=== PATIENT | male | born 1945 | race Caucasian/White ===

== ENCOUNTER 2017-09-09 14:11 | Inpatient (IN) | payer MEDICARE, MEDICAID, SELFPAY ==
[2017-09-09] VITALS (8 sets, daily range): BP systolic 161–190; BP diastolic 78–99; PULSE 90–117; RESP 15–26; TEMP 36.9–37.7; O2SAT 94–98; BMI 30.7; BMI 29.0; BMI 30.8
[2017-09-09 14:41] LABS: Bedside Glucose 356 mg/dL (70-110)
--- NOTE | 2017-09-09 14:59 | CT_ITS ---
STUDY: CT BRAIN WITHOUT CONTRAST REASON FOR EXAM: Male, 71 years old. Elevated blood pressure. Off balance. RADIATION DOSAGE (If Supplied By Facility): CTDIvol = ( 44.99 ) mGy, DLP = ( 745.49 ) mGycm TECHNIQUE: Transaxial CT imaging of the brain was performed without administration of intravenous contrast material. Individualized dose optimization techniques were used for this CT. COMPARISON: November 03, 2015 FINDINGS: Normal soft tissue structures. Normal calvarium. There is age consistent enlargement of the ventricles and sulci, most pronounced within the frontal lobes and stable since the prior examination. There are areas of decreased attenuation within the white matter tracts of the supratentorial brain, consistent with microvascular disease changes. Normal basal ganglia and thalami. Normal brainstem. There is moderate cerebellar atrophy. There is no intracranial hemorrhage. There are no findings of an acute ischemic infarction. Normal visualized paranasal sinuses. CT/Brain/Head without Contrast IMPRESSION: Stable examination demonstrating no acute intracranial process. Electronically Signed: Ladonan Mccarthy MD at 16:12 EST Tel , Service support ,
--- NOTE | 2017-09-09 15:00 | EKG12_ITS ---
Test Reason : HYPERGLYCEMIC Blood Pressure : / mmHG Vent. Rate : 092 BPM Atrial Rate : 092 BPM P-R Int : 128 ms QRS Dur : 084 ms QT Int : 356 ms P-R-T Axes : 026 078 024 degrees QTc Int : 440 ms Normal sinus rhythm Normal ECG Confirmed by DENIS GONZALEZ, SHALINI ([id number]), editorial director FRANCO KRISHNAMURTHY ([id number] on 09/12/2017 1:57:13 PM Referred By: BRAIN Confirmed By:SHALINI BARRIOS MD
[2017-09-09 15:22] LABS: Absolute Lymphocyte Count 1.11 X10^3/ul (0.83-4.51); Absolute Neutrophil Count 8.4 X10^3/uL (2.0-7.7); Basophil# 0.07 X10^3/uL; Basophil% 0.6 % (0-1); Eosinophil# 0.03 X10^3/uL; Eosinophils% 0.3 % (0-5); Hematocrit 41.5 % (40-54); Hemoglobin 13.7 g/dl (13.0-16.5); Lymphocyte # 1.11 X10^3/ul (4.0); Lymphocyte % 9.9 % (19-41); Mean Corpuscular Hgb 29.7 pg (27.0-32.0); Mean Platelet Vol. 12.5 fl (6.2-12.0); Monocyte# 1.55 X10^3/uL; Monocyte% 13.9 % (0-10); Neutrophil # 8.37 X10^3/uL (2.7-7.7); Neutrophil % 74.9 % (47-70); Platelet Count 225 K/mm3 (150-450); RBC Distribution Width CV 13.5 % (11.6-14.6); Red Blood Count 4.61 M/mm3 (4.6-6.2); White Blood Count 11.2 K/mm3 (4.4-11.0)
[2017-09-09 15:24] LABS: Differential Indicated SCAN CRITERIA MET; POSITIVE COUNT NO; POSITIVE DIFFERENTIAL YES; POSITIVE MORPHOLOGY NO
[2017-09-09 15:39] LABS: ALB/GLOB Ratio 0.8 RATIO (0.9-2.4); AST(SGOT) 7 U/L (15-37); Alanine Aminotransfer ALT/SGPT 22 U/L (16-61); Albumin, Serum 3.8 g/dL (3.2-5.0); Alkaline Phosphatase 128 U/L (45-117); Anion Gap 7 (5-15); BUN 11 mg/dL (7-18); BUN/Creat Ratio 11.1 RATIO (10-20); Calcium,Total 9.2 mg/dL (8.5-10.1); Chloride 96 mmol/L (98-107); Creatinine, Serum 0.99 mg/dL (0.70-1.30); EST Glomerular Filtration Rate 79 mL/min (>60); Est Glom Filt Rate - Afr Amer 95 mL/min (>60); Estimated Creatinine Clearance 60.86 ml/min; Globulin 4.6 g/dL (2.2-4.2); Glucose 340 mg/dL (74-106); Potassium 4.3 mmol/L (3.5-5.1); Protein, Total 8.4 g/dL (6.4-8.2); Sodium Level 135 mmol/L (136-145)
[2017-09-09 15:49] LABS: Reactive Lymphocyte RARE
[2017-09-09 15:57] LABS: Bacteria 0 SEEN /hpf (None Seen); Mucous, Urine 0 SEEN /hpf (<or=2+); Red Blood Cells-Urine 0 SEEN /hpf (0-5); Squamous Epithelial Cells - UA 0 SEEN /hpf (0-5); White Blood Cells 0 SEEN /hpf (0-5)
[2017-09-09 15:59] LABS: Color, Urine Yellow (Yellow); Glucose, Dipstick 1000 mg/dl (Normal); Ketone-Dipstick Negative (Negative); Leukocyte Esterase-Dipstick Negative /ul (Negative); Nitrite-Dipstick Negative (Negative); Occult Blood-Urine 10 /ul (Negative); Protein-Dipstick Negative (Negative); Specific Gravity, Urine 1.005 (1.002-1.030); Urine Bilirubin Dipstick Negative (Negative); Urine Clarity Clear (Clear); Urine Urobilinogen Normal (Normal); Urine pH 6.5 (5.0 - 8.0)
--- NOTE | 2017-09-09 17:35 | ED.DCSUM_ITS ---
- ER Visit Summary Date of Service: 09/09/17 Chief Complaint: [Dizziness, hypertension, hyperglycemia] History of Present Illness: The patient is a 71 M [presents the emergency department with 2 days of worsening gait instability blood pressure running in the 180s and 190s systolic and blood sugar running in the mid 200s. He lives in a senior care. He has MRDD. He gives very limited history and really has no complaints.] Physical Examination: [] Pressure elevated other vitals within normal limits WN WD NAD PERRL EOMI MMM NECK supple and nontender, no masses RRR no murmur rub or gallop, no peripheral edema, symmetric radial pulses CTAB no respiratory distress ABDOMEN is soft and nontender, normal bowel sounds, no distension, no rebound or guarding SKIN is warm and dry no rashes Alert and Oriented x3, CN II-XII in tact, no motor or sensory deficits, patient is very off balance and is unable to walk without significant help No lymphadenopathy Test Results: [] Emergency Department Course and Treatment: [Post void residual was 750 cc. Richardson was placed and patient had approximately a liter out. He was mildly hyponatremic. CT was unremarkable. EKG was sinus at a rate of 92. He had a leukocytosis at 11.2. Patient wanted to go home however he was unable to walk without assistance and usually goes up and down steps without any issues and lives at a senior care where his bedroom is on the second floor. For these reasons I do think he requires admission. He was given insulin 6 units for a blood sugar of 340] Treatment Plan: [] Disposition: [Admit] Impression: [1. Gait instability 2. Hyperglycemia 3. Uncontrolled hypertension] This note was generated with [employer] dictation software. It may contain incorrect words, spelling, and punctuation that were not noted in review of the chart prior to signing ED Disposition - Plan for ED Patient: Chief Complaint: Hyperglycemia Referrals: Jasiel Orellana MD [Primary Care Provider] -
--- NOTE | 2017-09-09 18:05 | PCM.HP.STD ---
Problem List (1) Elevated blood sugar Status: Acute (2) Weakness Status: Acute (3) Weakness Status: Acute (4) Benign hypertension Status: Chronic History of Present Illness Date of Admission: 09/09/17 Chief Complaint: elevated blood sugar, elevated blood pressure, confusion The patient is a 71 year old M with past medical history of hypertension, diabetes, MRDD and dementia. He is a resident at a senior living. Patient was unable to give much of a history and history was gotten from the lady accompanying him from the senior living. Per the history bridge expert, patient was noted to be more lethargic and weak over the last couple of days. He was also noted to have elevated blood pressure even though they have been giving him his medication he has been taking it. Blood pressure has been noted to be in the 160s and 180s up to 190 systolic. His blood sugar was also noted to be high in the 200s even though he has been taking his diabetes medications. Caregiver notes that patient has not really had a good appetite and has had decreased urine output. He did not have any fever or chills, any cough or chest pain, any shortness of breath, any abdominal pain, any diarrhea vomiting. This morning while trying to get out of his bed and walk downstairs the nurses that he was very weak and was wobbling and nearly fell. Did not decided to bring him to the hospital for further review. On admission in the ED blood sugar was found to be 340. CT of his head done was negative for any acute intracranial pathology. EKG showed a sinus rate of 92 with normal sinus rhythm. He was noted to have leukocytosis with white cell count of 11.2. He has never been admitted to be managed for poorly controlled diabetes and hypertension. [] Past Medical History Past Medical History (Chronic Problems): Chronic Problems Seizure disorder (Chronic) Mental retardation (Chronic) Iron deficiency anemia (Chronic) Dyslipidemia (Chronic) Benign hypertension (Chronic) Allergies ZARIA Inhibitors Allergy (Verified 09/09/17 14:16) Unknown Home Medications: Ambulatory Orders Medication Instructions Recorded Atorvastatin Calcium [Lipitor] 40 mg PO QHS 03/24/14 Calcium Carbonate/Vitamin D3 1 each PO BID 03/24/14 [Calcium 600 + Vit D Tablet] Diltiazem CD [Cardizem CD] 120 mg PO DAILY 03/24/14 Docusate Sodium [Colace] 200 mg PO BID 03/24/14 Metformin HCl [Glucophage] 500 mg PO BIDCM 03/24/14 Phenobarbital 129.6 mg PO BID 03/24/14 Alendronate Sodium [Fosamax] 70 mg PO Q7D@0700 05/08/15 Escitalopram Oxalate [Lexapro] 15 mg PO DAILY 11/03/15 Donepezil HCl 10 mg PO DAILY 09/09/17 Levetiracetam [Keppra] 500 mg PO BID 09/09/17 Losartan Potassium 25 mg PO DAILY 09/09/17 Pioglitazone HCl 15 mg PO DINNER 09/09/17 Surgical History: no surgical history Psychiatric History: Schizophrenia, - - MRDD Lives: - - [facility] Smoking Status: Never smoker Alcohol: None Drugs: None Review of Systems Constitutional: Reports: Malaise, Weakness. Denies: Anorexia, Chills, Fever Eyes: Denies: Blurred vision HEENT: Denies: Head Aches, Sinus Congestion, Sinus Drainage, Sore Throat Cardiovascular: Reports: - - Near syncope. Denies: Chest Pain, Chest Pressure, Chest Tightness, Heaviness, Light Headedness, Orthopnea, Palpitations, Syncope Respiratory: Denies: Cough, Hemoptysis, Pleuritic Pain, Shortness of Breath, Shortness of breath at rest, Sputum production, Wheezing Gastrointestinal: Denies: Abdominal Pain, Constipation, Diarrhea, Nausea, Vomiting Genitourinary: Denies: Dysuria Musculoskeletal: Denies: Joint Pain, Joint Tenderness Skin: Denies: Rash, Wounds Neurological: Reports: Balance problems - Nearly fell today. Denies: Change in Speech, Difficulty swallowing, Focal weakness, Headaches, Seizures Psychiatric: Denies: Anxiety, Depression, Homicidal Ideations, Suicidal Ideations Hematologic/ Lymphatic: Denies: Easy Bruising, Easy Bleeding VTE Information - Inpt Only VTE Present on Admission: No VTE Pharm Prophylaxis ordered?: Yes Patient Problems: Active and Suspected Problems Elevated blood sugar (Acute) Weakness (Acute) Weakness (Acute) - Physical Exam General: Alert, Cooperative, No apparent distress HEENT: Atraumatic, PERRLA, EOMI, Normocephalic Oral: Moist Mucosa Neck: Supple, No JVD, Negative Carotid Bruits Lungs: - - Mildly decreased breath sounds bibasilarly with a few fine crackles Cardiovascular: Regular rate, Regular Rhythm, Normal S1, Normal S2, No murmurs Abdomen: Bowel Sounds Present, Soft, Non Tender, Non-Distended, No Hepato-splenomegaly Extremities: No clubbing, No cyanosis, No edema, Capillary Refill Less than 3 Seconds Skin: No rashes, No breakdown Musculoskeletal: No Tenderness to Palpation of Joints or Extremities, - - Has mild swelling of his right knee which initial warmth. No redness seen. Lymphatic: No Cervical, Supraclavicular, or Inguinal Adenopathy Neurological: Cranial nerves II-XII grossly intact, Deep Tendon Reflexes 2+/4 and Symmetrical, Motor Exam 5/5 strength throughout, Slurred Speech, Muscle tone normal, Sensory exam intact to light touch and pain, - - Gait not assessed. Cerebellar examination impaired as patient not able to follow instructions for alternate hand movements. However I do not think that this is because he has cerebral abnormality, and is likely because he has MRDD and so is not able to follow clear instructions. Follow instructions for heel to magana. Finger to nose testing was good. Psych/Mental Status: Normal Affect - MRDD Vital Signs Temp Pulse Resp BP Pulse Ox 98.9 F 99 15 190/78 H 94 09/09/17 14:13 09/09/17 17:26 09/09/17 17:26 09/09/17 17:26 09/09/17 17:26 Oxygen Delivery Method Room Air Impressions Brain CT 09/09/17 14:59 IMPRESSION: Stable examination demonstrating no acute intracranial process. Electronically Signed: Ladonna Mccarthy MD at 16:12 EST Tel , Service support , 09/09/17 14:59 Brain/Head without Contrast [CT] Stat Laboratory Results 09/09/17 09/09/17 09/09/17 Range/Units 14:21 14:21 14:33 WBC 11.2 H (4.4-11.0) K/mm3 RBC 4.61 (4.6-6.2) M/mm3 Hgb 13.7 (13.0-16.5) g/dl Hct 41.5 (40-54) % MCV 90.0 (80-94) fL MCH 29.7 (27.0-32.0) pg MCHC 33.0 (32-36) g/gl RDW 13.5 (11.6-14.6) % RDW Differential 44.0 H (35.1-43.9) fl Plt Count 225 (150-450) K/mm3 MPV 12.5 H (6.2-12.0) fl Immature Gran % (Auto) 0.400 (0.0-0.9) % Neut % (Auto) 74.9 H (47-70) % Lymph % (Auto) 9.9 L (19-41) % [place] % (Auto) 13.9 H (0-10) % Eos % (Auto) 0.3 (0-5) % Baso % (Auto) 0.6 (0-1) % Absolute Neuts (auto) 8.4 H (2.0-7.7) X10^3/uL Absolute Lymphs (auto) 1.11 (0.83-4.51) X10^3/ul Total Counted Not Reportable Differential Comment Diff Path Review May foll Reactive Lymphocytes RARE Sodium 135 L (136-145) mmol/L Potassium 4.3 (3.5-5.1) mmol/L Chloride 96 L (98-107) mmol/L Carbon Dioxide 32.0 (21.0-32.0) mmol/L Anion Gap 7 (5-15) BUN 11 (7-18) mg/dL Creatinine 0.99 (0.70-1.30) mg/dL Estim Creat Clear Calc 60.86 ml/min Est GFR (MDRD) Af Amer 95 (>60) mL/min Est GFR (MDRD) Non-Af 79 (>60) mL/min BUN/Creatinine Ratio 11.1 (10-20) RATIO Glucose 340 H (74-106) mg/dL Calcium 9.2 (8.5-10.1) mg/dL Total Bilirubin 0.40 (0.20-1.00) mg/dL AST 7 L (15-37) U/L ALT 22 (16-61) U/L Alkaline Phosphatase 128 H (45-117) U/L Troponin I < 0.02 (<0.06) ng/mL Total Protein 8.4 H (6.4-8.2) g/dL Albumin 3.8 (3.2-5.0) g/dL Globulin 4.6 H (2.2-4.2) g/dL Albumin/Globulin Ratio 0.8 L (0.9-2.4) RATIO Urine Color (Yellow) Urine Clarity (Clear) Urine pH (5.0 - 8.0) Ur Specific [place] (1.002-1.030) Urine Protein (Negative) mg/dl Urine Glucose (UA) (Normal) mg/dl Urine Ketones (Negative) mg/dl Urine Occult Blood (Negative) /ul Urine Nitrite (Negative) Urine Bilirubin (Negative) mg/dL Urine Urobilinogen (Normal) mg/dl Ur Leukocyte Esterase (Negative) /ul Urine RBC (0-5) /hpf Urine WBC (0-5) /hpf Ur Squamous Epith Cells (0-5) /hpf Urine Bacteria (None Seen) /hpf Urine Mucus (<or=2+) /hpf POC Glucose 356 H (70-110) mg/dL 09/09/17 Range/Units 15:24 WBC (4.4-11.0) K/mm3 RBC (4.6-6.2) M/mm3 Hgb (13.0-16.5) g/dl Hct (40-54) % MCV (80-94) fL MCH (27.0-32.0) pg MCHC (32-36) g/gl RDW (11.6-14.6) % RDW Differential (35.1-43.9) fl Plt Count (150-450) K/mm3 MPV (6.2-12.0) fl Immature Gran % (Auto) (0.0-0.9) % Neut % (Auto) (47-70) % Lymph % (Auto) (19-41) % [place] % (Auto) (0-10) % Eos % (Auto) (0-5) % Baso % (Auto) (0-1) % Absolute Neuts (auto) (2.0-7.7) X10^3/uL Absolute Lymphs (auto) (0.83-4.51) X10^3/ul Total Counted Differential Comment Diff Path Review Reactive Lymphocytes Sodium (136-145) mmol/L Potassium (3.5-5.1) mmol/L Chloride (98-107) mmol/L Carbon Dioxide (21.0-32.0) mmol/L Anion Gap (5-15) BUN (7-18) mg/dL Creatinine (0.70-1.30) mg/dL Estim Creat Clear Calc ml/min Est GFR (MDRD) Af Amer (>60) mL/min Est GFR (MDRD) Non-Af (>60) mL/min BUN/Creatinine Ratio (10-20) RATIO Glucose (74-106) mg/dL Calcium (8.5-10.1) mg/dL Total Bilirubin (0.20-1.00) mg/dL AST (15-37) U/L ALT (16-61) U/L Alkaline Phosphatase (45-117) U/L Troponin I (<0.06) ng/mL Total Protein (6.4-8.2) g/dL Albumin (3.2-5.0) g/dL Globulin (2.2-4.2) g/dL Albumin/Globulin Ratio (0.9-2.4) RATIO Urine Color Yellow (Yellow) Urine Clarity Clear (Clear) Urine pH 6.5 (5.0 - 8.0) Ur Specific [place] 1.005 (1.002-1.030) Urine Protein Negative (Negative) mg/dl Urine Glucose (UA) 1000 H (Normal) mg/dl Urine Ketones Negative (Negative) mg/dl Urine Occult Blood 10 H (Negative) /ul Urine Nitrite Negative (Negative) Urine Bilirubin Negative (Negative) mg/dL Urine Urobilinogen Normal (Normal) mg/dl Ur Leukocyte Esterase Negative (Negative) /ul Urine RBC 0 SEEN (0-5) /hpf Urine WBC 0 SEEN (0-5) /hpf Ur Squamous Epith Cells 0 SEEN (0-5) /hpf Urine Bacteria 0 SEEN (None Seen) /hpf Urine Mucus 0 SEEN (<or=2+) /hpf POC Glucose (70-110) mg/dL Assessment/Plan Active and Suspected Problems Elevated blood sugar (Acute) Weakness (Acute) Weakness (Acute) 71-year-old male with past history of diabetes, hypertension and MRDD admitted from a senior living with a complaint of weakness and generalized malaise of a couple of days duration with associated near syncope today. He is also had elevated blood pressure and elevated blood sugars falls in the skilled nursing. 1. Near syncope possibly vasovagal due to dehydration patient was weak and lethargic and nearly fell today when he was walking from his room downstairs hasnt had any dizziness, lightheadedness, nausea or vomiting. Vitals in ED showed elevated BP has had decreased intake in the senior living,a nd was noted to have decreased urine output neuro exam didnt show any focal weakness, was unable to follow instructions for dysdiadochokinesia, but finger to nose testing was normal CBC: wbc was 11.2 BMP: Na of 135, otherwise WNL EKG showed sinus rhythm, with no acute ST changes will admit to PCU with telemetry UA showed no evidence of infection will hydrate with IVF 1/2 NS due to elevated BP will get blood cultures o/a of elevated wbc will monitor 2. Poorly controlled hypertension BP has been running in the 180s and 190s in senior living. Caregiver claims compliance with meds BP is 190/78 on admission on cardizem and losartan; will increase losartan to 50mg daily and monitor BP will put on IV hydralazine 10mg q6prn. Will monitor, and adjust BP meds as necessary 3. HYperglycemia in a patient with DM2 blood sugar on admission in the ED was 340 on metformin 500mg daily and pioglitazone 15mg daily in senior living bicarb within normal limits will check A1C and put on ISS; will adjust oral meds based on A1C 4. Osteoporosis has a painful swollen left knee. Will check uric acid level and get xray of left knee on fosamax; will continue 5. History of seizures on keppra and phenobarbital; will check levels in light of malaise will continue if levels within normal limits 6. DVT prophylaxis: Heparin 7. GI prophylaxis: famotidine Code Visit Inpatient E&M: 29188 Init Hosp L3
--- NOTE | 2017-09-09 18:24 | HP.PCM_ITS ---
Problem List (1) Elevated blood sugar Status: Acute (2) Weakness Status: Acute (3) Weakness Status: Acute (4) Benign hypertension Status: Chronic History of Present Illness Date of Admission: 09/09/17 Chief Complaint: elevated blood sugar, elevated blood pressure, confusion The patient is a 71 year old M with past medical history of hypertension, diabetes, MRDD and dementia. [facility] a [facility]. Patient was unable to give much of a history and history was gotten from the lady accompanying him from the [facility]. Per the history pit hand, patient was noted to be more lethargic and weak over the last couple of days. He was also noted to have elevated blood pressure even though they have been giving him his medication he has been taking it. Blood pressure has been noted to be in the 160s and 180s up to 190 systolic. His blood sugar was also noted to be high in the 200s even though he has been taking his diabetes medications. Caregiver notes that patient has not really had a good appetite and has had decreased urine output. He did not have any fever or chills, any cough or chest pain, any shortness of breath, any abdominal pain, any diarrhea vomiting. This morning while trying to get out of his bed and walk downstairs the nurses that he was very weak and was wobbling and nearly fell. Did not decided to bring him to the hospital for further review. On admission in the ED blood sugar was found to be 340. CT of his head done was negative for any acute intracranial pathology. EKG showed a sinus rate of 92 with normal sinus rhythm. He was noted to have leukocytosis with white cell count of 11.2. He has never been admitted to be managed for poorly controlled diabetes and hypertension. [] Past Medical History Past Medical History (Chronic Problems): Chronic Problems Seizure disorder (Chronic) Mental retardation (Chronic) Iron deficiency anemia (Chronic) Dyslipidemia (Chronic) Benign hypertension (Chronic) Allergies ZARIA Inhibitors Allergy (Verified 09/09/17 14:16) Unknown Home Medications: Ambulatory Orders Medication Instructions Recorded Atorvastatin Calcium [Lipitor] 40 mg PO QHS 03/24/14 Calcium Carbonate/Vitamin D3 1 each PO BID 03/24/14 [Calcium 600 + Vit D Tablet] Diltiazem CD [Cardizem CD] 120 mg PO DAILY 03/24/14 Docusate Sodium [Colace] 200 mg PO BID 03/24/14 Metformin HCl [Glucophage] 500 mg PO BIDCM 03/24/14 Phenobarbital 129.6 mg PO BID 03/24/14 Alendronate Sodium [Fosamax] 70 mg PO Q7D@0700 05/08/15 Escitalopram Oxalate [Lexapro] 15 mg PO DAILY 11/03/15 Donepezil HCl 10 mg PO DAILY 09/09/17 Levetiracetam [Keppra] 500 mg PO BID 09/09/17 Losartan Potassium 25 mg PO DAILY 09/09/17 Pioglitazone HCl 15 mg PO DINNER 09/09/17 Surgical History: no surgical history Psychiatric History: Schizophrenia, - - MRDD Lives: - - snf Smoking Status: Never smoker Alcohol: None Drugs: None Review of Systems Constitutional: Reports: Malaise, Weakness. Denies: Anorexia, Chills, Fever Eyes: Denies: Blurred vision HEENT: Denies: Head Aches, Sinus Congestion, Sinus Drainage, Sore Throat Cardiovascular: Reports: - - Near syncope. Denies: Chest Pain, Chest Pressure, Chest Tightness, Heaviness, Light Headedness, Orthopnea, Palpitations, Syncope Respiratory: Denies: Cough, Hemoptysis, Pleuritic Pain, Shortness of Breath, Shortness of breath at rest, Sputum production, Wheezing Gastrointestinal: Denies: Abdominal Pain, Constipation, Diarrhea, Nausea, Vomiting Genitourinary: Denies: Dysuria Musculoskeletal: Denies: Joint Pain, Joint Tenderness Skin: Denies: Rash, Wounds Neurological: Reports: Balance problems - Nearly fell today. Denies: Change in Speech, Difficulty swallowing, Focal weakness, Headaches, Seizures Psychiatric: Denies: Anxiety, Depression, Homicidal Ideations, Suicidal Ideations Hematologic/ Lymphatic: Denies: Easy Bruising, Easy Bleeding VTE Information - Inpt Only VTE Present on Admission: No VTE Pharm Prophylaxis ordered?: Yes Patient Problems: Active and Suspected Problems Elevated blood sugar (Acute) Weakness (Acute) Weakness (Acute) - Physical Exam General: Alert, Cooperative, No apparent distress HEENT: Atraumatic, PERRLA, EOMI, Normocephalic Oral: Moist Mucosa Neck: Supple, No JVD, Negative Carotid Bruits Lungs: - - Mildly decreased breath sounds bibasilarly with a few fine crackles Cardiovascular: Regular rate, Regular Rhythm, Normal S1, Normal S2, No murmurs Abdomen: Bowel Sounds Present, Soft, Non Tender, Non-Distended, No Hepato- splenomegaly Extremities: No clubbing, No cyanosis, No edema, Capillary Refill Less than 3 Seconds Skin: No rashes, No breakdown Musculoskeletal: No Tenderness to Palpation of Joints or Extremities, - - Has mild swelling of his right knee which initial warmth. No redness seen. Lymphatic: No Cervical, Supraclavicular, or Inguinal Adenopathy Neurological: Cranial nerves II-XII grossly intact, Deep Tendon Reflexes 2+/4 and Symmetrical, Motor Exam 5/5 strength throughout, Slurred Speech, Muscle tone normal, Sensory exam intact to light touch and pain, - - Gait not assessed. Cerebellar examination impaired as patient not able to follow instructions for alternate hand movements. However I do not think that this is because he has cerebral abnormality, and is likely because he has MRDD and so is not able to follow clear instructions. Follow instructions for heel to magana. Finger to nose testing was good. Psych/Mental Status: Normal Affect - MRDD Vital Signs Temp Pulse Resp BP Pulse Ox 98.9 F 99 15 190/78 H 94 09/09/17 14:13 09/09/17 17:26 09/09/17 17:26 09/09/17 17:26 09/09/17 17:26 Oxygen Delivery Method Room Air Impressions Brain CT 09/09/17 14:59 IMPRESSION: Stable examination demonstrating no acute intracranial process. Electronically Signed: Ladonna Mccarthy MD at 16:12 EST Tel , Service support , 09/09/17 14:59 Brain/Head without Contrast [CT] Stat Laboratory Results 09/09/17 09/09/17 09/09/17 Range/Units 14:21 14:21 14:33 WBC 11.2 H (4.4-11.0) K/mm3 RBC 4.61 (4.6-6.2) M/mm3 Hgb 13.7 (13.0-16.5) g/dl Hct 41.5 (40-54) % MCV 90.0 (80-94) fL MCH 29.7 (27.0-32.0) pg MCHC 33.0 (32-36) g/gl RDW 13.5 (11.6-14.6) % RDW Differential 44.0 H (35.1-43.9) fl Plt Count 225 (150-450) K/mm3 MPV 12.5 H (6.2-12.0) fl Immature Gran % (Auto) 0.400 (0.0-0.9) % Neut % (Auto) 74.9 H (47-70) % Lymph % (Auto) 9.9 L (19-41) % [place] % (Auto) 13.9 H (0-10) % Eos % (Auto) 0.3 (0-5) % Baso % (Auto) 0.6 (0-1) % Absolute Neuts (auto) 8.4 H (2.0-7.7) X10^3/uL Absolute Lymphs (auto) 1.11 (0.83-4.51) X10^3/ul Total Counted Not Reportable Differential Comment Diff Path Review May foll Reactive Lymphocytes RARE Sodium 135 L (136-145) mmol/L Potassium 4.3 (3.5-5.1) mmol/L Chloride 96 L (98-107) mmol/L Carbon Dioxide 32.0 (21.0-32.0) mmol/L Anion Gap 7 (5-15) BUN 11 (7-18) mg/dL Creatinine 0.99 (0.70-1.30) mg/dL Estim Creat Clear Calc 60.86 ml/min Est GFR (MDRD) Af Amer 95 (>60) mL/min Est GFR (MDRD) Non-Af 79 (>60) mL/min BUN/Creatinine Ratio 11.1 (10-20) RATIO Glucose 340 H (74-106) mg/dL Calcium 9.2 (8.5-10.1) mg/dL Total Bilirubin 0.40 (0.20-1.00) mg/dL AST 7 L (15-37) U/L ALT 22 (16-61) U/L Alkaline Phosphatase 128 H (45-117) U/L Troponin I < 0.02 (<0.06) ng/mL Total Protein 8.4 H (6.4-8.2) g/dL Albumin 3.8 (3.2-5.0) g/dL Globulin 4.6 H (2.2-4.2) g/dL Albumin/Globulin Ratio 0.8 L (0.9-2.4) RATIO Urine Color (Yellow) Urine Clarity (Clear) Urine pH (5.0 - 8.0) Ur Specific [place] (1.002-1.030) Urine Protein (Negative) mg/dl Urine Glucose (UA) (Normal) mg/dl Urine Ketones (Negative) mg/dl Urine Occult Blood (Negative) /ul Urine Nitrite (Negative) Urine Bilirubin (Negative) mg/dL Urine Urobilinogen (Normal) mg/dl Ur Leukocyte Esterase (Negative) /ul Urine RBC (0-5) /hpf Urine WBC (0-5) /hpf Ur Squamous Epith Cells (0-5) /hpf Urine Bacteria (None Seen) /hpf Urine Mucus (<or=2+) /hpf POC Glucose 356 H (70-110) mg/dL 09/09/17 Range/Units 15:24 WBC (4.4-11.0) K/mm3 RBC (4.6-6.2) M/mm3 Hgb (13.0-16.5) g/dl Hct (40-54) % MCV (80-94) fL MCH (27.0-32.0) pg MCHC (32-36) g/gl RDW (11.6-14.6) % RDW Differential (35.1-43.9) fl Plt Count (150-450) K/mm3 MPV (6.2-12.0) fl Immature Gran % (Auto) (0.0-0.9) % Neut % (Auto) (47-70) % Lymph % (Auto) (19-41) % [place] % (Auto) (0-10) % Eos % (Auto) (0-5) % Baso % (Auto) (0-1) % Absolute Neuts (auto) (2.0-7.7) X10^3/uL Absolute Lymphs (auto) (0.83-4.51) X10^3/ul Total Counted Differential Comment Diff Path Review Reactive Lymphocytes Sodium (136-145) mmol/L Potassium (3.5-5.1) mmol/L Chloride (98-107) mmol/L Carbon Dioxide (21.0-32.0) mmol/L Anion Gap (5-15) BUN (7-18) mg/dL Creatinine (0.70-1.30) mg/dL Estim Creat Clear Calc ml/min Est GFR (MDRD) Af Amer (>60) mL/min Est GFR (MDRD) Non-Af (>60) mL/min BUN/Creatinine Ratio (10-20) RATIO Glucose (74-106) mg/dL Calcium (8.5-10.1) mg/dL Total Bilirubin (0.20-1.00) mg/dL AST (15-37) U/L ALT (16-61) U/L Alkaline Phosphatase (45-117) U/L Troponin I (<0.06) ng/mL Total Protein (6.4-8.2) g/dL Albumin (3.2-5.0) g/dL Globulin (2.2-4.2) g/dL Albumin/Globulin Ratio (0.9-2.4) RATIO Urine Color Yellow (Yellow) Urine Clarity Clear (Clear) Urine pH 6.5 (5.0 - 8.0) Ur Specific [place] 1.005 (1.002-1.030) Urine Protein Negative (Negative) mg/dl Urine Glucose (UA) 1000 H (Normal) mg/dl Urine Ketones Negative (Negative) mg/dl Urine Occult Blood 10 H (Negative) /ul Urine Nitrite Negative (Negative) Urine Bilirubin Negative (Negative) mg/dL Urine Urobilinogen Normal (Normal) mg/dl Ur Leukocyte Esterase Negative (Negative) /ul Urine RBC 0 SEEN (0-5) /hpf Urine WBC 0 SEEN (0-5) /hpf Ur Squamous Epith Cells 0 SEEN (0-5) /hpf Urine Bacteria 0 SEEN (None Seen) /hpf Urine Mucus 0 SEEN (<or=2+) /hpf POC Glucose (70-110) mg/dL Assessment/Plan Active and Suspected Problems Elevated blood sugar (Acute) Weakness (Acute) Weakness (Acute) 71-year-old male with past history of diabetes, hypertension and MRDD admitted from a [facility] with a complaint of weakness and generalized malaise of a couple of days duration with associated near syncope today. He is also had elevated blood pressure and elevated blood sugars falls in the [facility]. 1. Near syncope possibly vasovagal due to dehydration * patient was weak and lethargic and nearly fell today when he was walking from his room downstairs * hasnt had any dizziness, lightheadedness, nausea or vomiting. * Vitals in ED showed elevated BP * has had decreased intake in the [facility],a nd was noted to have decreased urine output * neuro exam didnt show any focal weakness, was unable to follow instructions for dysdiadochokinesia, but finger to nose testing was normal * CBC: wbc was 11.2 * BMP: Na of 135, otherwise WNL * EKG showed sinus rhythm, with no acute ST changes * will admit to PCU with telemetry * UA showed no evidence of infection * will hydrate with IVF 1/2 NS due to elevated BP * will get blood cultures o/a of elevated wbc * will monitor * 2. Poorly controlled hypertension * BP has been running in the 180s and 190s in [facility]. Caregiver claims compliance with meds * BP is 190/78 on admission * on cardizem and losartan; will increase losartan to 50mg daily and monitor BP * will put on IV hydralazine 10mg q6prn. Will monitor, and adjust BP meds as necessary * 3. HYperglycemia in a patient with DM2 * blood sugar on admission in the ED was 340 * on metformin 500mg daily and pioglitazone 15mg daily in [facility] * bicarb within normal limits * will check A1C and put on ISS; will adjust oral meds based on A1C * * 4. Osteoporosis * has a painful swollen left knee. Will check uric acid level and get xray of left knee * on fosamax; will continue * 5. History of seizures * on keppra and phenobarbital; will check levels in light of malaise * will continue if levels within normal limits * 6. DVT prophylaxis: Heparin 7. GI prophylaxis: famotidine Code Visit Inpatient E&M: 40874 Init Hosp L3
--- NOTE | 2017-09-09 19:42 | RAD_ITS ---
STUDY: X-RAY - RIGHT KNEE REASON FOR EXAM: Male, 71 years old. Right knee swelling TECHNIQUE: Three view(s) of the knee. COMPARISON: None. FINDINGS: Normal visualized distal femur. Normal visualized proximal tibia and fibula. Normal proximal tibiofibular articulation. There is chondrocalcinosis of both menisci. Spurring along the tibial spine and femoral notch. There is moderate degenerative arthrosis of the medial femorotibial compartment with moderate joint space narrowing. There is moderate degenerative arthrosis of the lateral femorotibial compartment with moderate joint space narrowing. There is mild degenerative arthrosis of the patellofemoral articulation. There is minimal joint effusion. There are atherosclerotic calcifications. RAD/Knee 3 Views IMPRESSION: Moderate tricompartmental degenerative changes. Minimal joint space effusion. There is no acute displaced fracture or dislocation. Electronically Signed: Kamla Santillan MD at 0:23 EST , Service support ,
[2017-09-09 20:55] LABS: Hemoglobin A1c 6.8 % (4.2-6.3)
[2017-09-09 21:04] LABS: Uric Acid 3.3 mg/dL (3.5-7.2)
[2017-09-09] MEDS: 0.45% Normal Saline 1,000 ML 75 ML IV (22:25)
[2017-09-09] MEDS: levETIRAcetam 500 MG Tablet PO (22:30)
[2017-09-09] MEDS: Docusate Sodium 100 MG Capsule 200 MG PO (22:30)
[2017-09-09] MEDS: Atorvastatin Calcium 40 MG Tablet PO (22:31)
[2017-09-09 22:56] LABS: Bedside Glucose 279 mg/dL (70-110)
[2017-09-10] VITALS (12 sets, daily range): BP systolic 145–167; BP diastolic 71–89; PULSE 91–120; RESP 15–23; TEMP 36.6–37.6; O2SAT 92–95
[2017-09-10 06:26] LABS: Absolute Lymphocyte Count 1.16 X10^3/ul (0.83-4.51); Absolute Neutrophil Count 9.9 X10^3/uL (2.0-7.7); Basophil# 0.02 X10^3/uL; Basophil% 0.2 % (0-1); Eosinophil# 0.01 X10^3/uL; Eosinophils% 0.1 % (0-5); Hematocrit 39.4 % (40-54); Hemoglobin 12.9 g/dl (13.0-16.5); Lymphocyte # 1.16 X10^3/ul (4.0); Lymphocyte % 8.9 % (19-41); Mean Corp Hgb Conc 32.7 g/gl (32-36); Mean Corpuscular Hgb 29.3 pg (27.0-32.0); Mean Corpuscular Volume 89.3 fL (80-94); Mean Platelet Vol. 12.1 fl (6.2-12.0); Monocyte# 1.91 X10^3/uL; Monocyte% 14.6 % (0-10); Neutrophil # 9.92 X10^3/uL (2.7-7.7); Platelet Count 238 K/mm3 (150-450); RBC Distribution Width CV 13.3 % (11.6-14.6); RBC Distribution Width SD 43.5 fl (35.1-43.9); Red Blood Count 4.41 M/mm3 (4.6-6.2)
[2017-09-10 06:32] LABS: Differential Indicated SCAN CRITERIA MET; POSITIVE COUNT NO; POSITIVE DIFFERENTIAL YES; POSITIVE MORPHOLOGY NO
[2017-09-10 06:33] LABS: Anion Gap 9 (5-15); BUN 10 mg/dL (7-18); BUN/Creat Ratio 14.3 RATIO (10-20); Calcium,Total 8.7 mg/dL (8.5-10.1); Chloride 98 mmol/L (98-107); EST Glomerular Filtration Rate 118 mL/min (>60); Est Glom Filt Rate - Afr Amer 142 mL/min (>60); Estimated Creatinine Clearance 60.26 ml/min; Glucose 287 mg/dL (74-106); Sodium Level 133 mmol/L (136-145)
[2017-09-10 06:51] LABS: Bedside Glucose 354 mg/dL (70-110)
[2017-09-10 06:56] LABS: Differential Comment SCANNED
[2017-09-10] MEDS: Calcium Carb/Vitamin D 1 TABLET Tablet PO ×2 (09:26→16:40)
[2017-09-10] MEDS: Donepezil HCl 10 MG Tablet PO (09:27)
[2017-09-10] MEDS: Escitalopram Oxalate 10 MG Tablet 15 MG PO (09:27)
[2017-09-10] MEDS: levETIRAcetam 500 MG Tablet PO ×2 (09:27→22:47)
[2017-09-10] MEDS: Docusate Sodium 100 MG Capsule 200 MG PO ×2 (09:27→22:47)
[2017-09-10] MEDS: Losartan Potassium 50 MG Tablet PO (09:37)
[2017-09-10 10:33] LABS: Pathologist Review Reviewed
[2017-09-10 11:56] LABS: Bedside Glucose 275 mg/dL (70-110)
--- NOTE | 2017-09-10 12:31 | CASEMGMT ---
Patient is from a retirement. JAYA called the number of the person listed as a friend on his face sheet. The name was Catie, however when JAYA called the number the message indicated it was Jennifer, the network architect manager of the retirement on [place]. JAYA left a message requesting a return call about one of their residents. Ginny ROSADO
[2017-09-10] MEDS: Pioglitazone Hydrochloride 15 MG Tablet PO (16:40)
[2017-09-10 17:01] LABS: Bedside Glucose 241 mg/dL (70-110)
--- NOTE | 2017-09-10 18:00 | PCM.PN.HOSP ---
Patient Problems: Active and Suspected Problems Elevated blood sugar (Acute) Weakness (Acute) Weakness (Acute) Subjective: CC: Generalized weakness This is a 71-year-old male with past history of diabetes, hypertension and MRDD admitted from a assisted with a complaint of weakness and malaise , he also experienced near syncopal episode. Was noted to have elevated blood pressure and blood glucose. He reports no new symptoms. Vitals/I&O's: Vital Signs Temp Pulse Resp BP Pulse Ox 99.2 F H 109 H 18 145/86 H 95 09/10/17 14:59 09/10/17 14:59 09/10/17 14:59 09/10/17 14:59 09/10/17 14:59 Oxygen Delivery Method Room Air Weight: 81.8 kg Body Mass Index (BMI) 29.0 Intake and Output for Last 24 Hours 09/08/17 09/09/17 09/10/17 23:59 23:59 23:59 Intake Total 565 / 565 1239 / 1239 Output Total 580 / 580 2024 / 2024 Balance -15 / -15 -786 / -786 General: Alert, Oriented x3 HEENT: Atraumatic Oral: Moist Mucosa Neck: Supple, No JVD Lungs: Clear to auscultation, Normal air movement, No rhonchi, No wheeze Cardiovascular: Regular rate, Normal S1, Normal S2 Abdomen: Bowel Sounds Present, Soft, Non Tender, Non-Distended Extremities: No clubbing, Capillary Refill Less than 3 Seconds Neurological: Cranial nerves II-XII grossly intact, Deep Tendon Reflexes 2+/4 and Symmetrical, Motor Exam 5/5 strength throughout Laboratory Results 09/09/17 20:30: Uric Acid 3.3 L 09/09/17 20:30: Hemoglobin A1c 6.8 H 09/09/17 20:30: Phenobarbital 39.0 09/09/17 20:30: Levetiracetam Pending 09/09/17 22:22: POC Glucose 279 H 09/10/17 05:45: WBC 13.0 H, RBC 4.41 L, Hgb 12.9 L, Hct 39.4 L, MCV 89.3, MCH 29.3, MCHC 32.7, RDW 13.3, RDW Differential 43.5, Plt Count 238, MPV 12.1 H, Immature Gran % (Auto) 0.200, Neut % (Auto) 76.0 H, Lymph % (Auto) 8.9 L, [place] % (Auto) 14.6 H, Eos % (Auto) 0.1, Baso % (Auto) 0.2, Absolute Neuts (auto) 9.9 H, Absolute Lymphs (auto) 1.16, Total Counted Not Reportable, Differential Comment SCANNED, Diff Path Review November [facility] 09/10/17 05:45: Sodium 133 L, Potassium 4.0, Chloride 98, Carbon Dioxide 26.0, Anion Gap 9, BUN 10, Creatinine 0.70, Estim Creat Clear Calc 60.26, Est GFR (MDRD) Af Amer 142, Est GFR (MDRD) Non-Af 118, BUN/Creatinine Ratio 14.3, Glucose 287 H, Calcium 8.7 09/10/17 06:43: POC Glucose 354 H 09/10/17 11:44: POC Glucose 275 H 09/10/17 16:36: POC Glucose 241 H Current Medications Alendronate Sodium (Fosamax) 70 mg PO Q7D@0700 [facility] Atorvastatin Calcium (Lipitor) 40 mg PO QHS [facility] Last Admin: 09/09/17 22:31 Dose: 40 mg Calcium/Vitamin D (Os-Ferny 500mg + D) [facility] Last Admin: 09/10/17 16:40 Dose: 1 tablet Dextrose (D50w Syringe) 0 gm IV X1 PRN; Protocol PRN Reason: Hypoglycemia Docusate Sodium (Colace) 200 mg PO BID [facility] Last Admin: 09/10/17 09:27 Dose: 200 mg Donepezil HCl (Aricept) 10 mg PO DAILY [facility] Last Admin: 09/10/17 09:27 Dose: 10 mg Escitalopram Oxalate (Lexapro) 15 mg PO DAILY [facility] Last Admin: 09/10/17 09:27 Dose: 15 mg Glucagon () 1 mg IM .X1 PRN PRN Reason: Hypoglycemia Heparin Sodium (Porcine) (Heparin Na) 5,000 unit SC Q8 [facility] Last Admin: 09/10/17 15:11 Dose: 5,000 u Hydralazine HCl (Apresoline) 10 mg IV Q6H PRN PRN PRN Reason: BLOOD PRESSURE ELEVATION Last Admin: 09/09/17 23:50 Dose: 10 mg Insulin Aspart (Novolog Flexpen (Bkc)) 0 units SC ACHS [facility] PRN Reason: Protocol Last Admin: 09/10/17 16:39 Dose: 3 u Insulin Detemir (Levemir ([facility])) 10 units SC BID [facility] Levetiracetam (Keppra) 500 mg PO BID [facility] Last Admin: 09/10/17 09:27 Dose: 500 mg Losartan Potassium (Cozaar) 50 mg PO DAILY [facility] Last Admin: 09/10/17 09:37 Dose: 50 mg Magnesium Hydroxide (Milk Of Magnesia) 30 ml PO DAILY PRN PRN PRN Reason: Constipation Metformin [facility] ([facility]) [facility] Last Admin: 09/10/17 16:40 Dose: 500 mg Phenobarbital (Phenobarbital) 129.6 mg PO BID [facility] Pioglitazone HCl (Actos) 15 mg PO DINNER [facility] Last Admin: 09/10/17 16:40 Dose: 15 mg Sodium Chloride () 5 - 30 ml IV UD PRN PRN Reason: SALINE FLUSH Assessment/Plan Active and Suspected Problems Elevated blood sugar (Acute) Weakness (Acute) Weakness (Acute) 1. Near syncope ; continue gentle hydration will obtain echocardiogram. 2. hypertension; continue current antihypertensive agents. 3. Diabetes type 2 with hyperglycemia; will continue on current oral agents as well as insulin sliding scale, I have started him on Levemir. 4. Osteoporosis; continue on Fosamax. 5. History of seizures; continue his current AEDS without change. 6. DVT prophylaxis with Heparin Code Visit OBSV E&M: 62208 Subsequent observation care L3
--- NOTE | 2017-09-10 18:04 | PN_ITS ---
Patient Problems: Active and Suspected Problems Elevated blood sugar (Acute) Weakness (Acute) Weakness (Acute) Subjective: CC: Generalized weakness This is a 71-year-old male with past history of diabetes, hypertension and MRDD admitted from a skilled nursing with a complaint of weakness and malaise , he also experienced near syncopal episode. Was noted to have elevated blood pressure and blood glucose. He reports no new symptoms. Vitals/I&O's: Vital Signs Temp Pulse Resp BP Pulse Ox 99.2 F H 109 H 18 145/86 H 95 09/10/17 14:59 09/10/17 14:59 09/10/17 14:59 09/10/17 14:59 09/10/17 14:59 Oxygen Delivery Method Room Air Weight: 81.8 kg Body Mass Index (BMI) 29.0 Intake and Output for Last 24 Hours 09/08/17 09/09/17 09/10/17 23:59 23:59 23:59 Intake Total 565 / 565 1239 / 1239 Output Total 580 / 580 2024 / 2024 Balance -15 / -15 -786 / -786 General: Alert, Oriented x3 HEENT: Atraumatic Oral: Moist Mucosa Neck: Supple, No JVD Lungs: Clear to auscultation, Normal air movement, No rhonchi, No wheeze Cardiovascular: Regular rate, Normal S1, Normal S2 Abdomen: Bowel Sounds Present, Soft, Non Tender, Non-Distended Extremities: No clubbing, Capillary Refill Less than 3 Seconds Neurological: Cranial nerves II-XII grossly intact, Deep Tendon Reflexes 2+/4 and Symmetrical, Motor Exam 5/5 strength throughout Laboratory Results 09/09/17 20:30: Uric Acid 3.3 L 09/09/17 20:30: Hemoglobin A1c 6.8 H 09/09/17 20:30: Phenobarbital 39.0 09/09/17 20:30: Levetiracetam Pending 09/09/17 22:22: POC Glucose 279 H 09/10/17 05:45: WBC 13.0 H, RBC 4.41 L, Hgb 12.9 L, Hct 39.4 L, MCV 89.3, MCH 29.3, MCHC 32.7, RDW 13.3, RDW Differential 43.5, Plt Count 238, MPV 12.1 H, Immature Gran % (Auto) 0.200, Neut % (Auto) 76.0 H, Lymph % (Auto) 8.9 L, [place] % (Auto) 14.6 H, Eos % (Auto) 0.1, Baso % (Auto) 0.2, Absolute Neuts (auto) 9.9 H, Absolute Lymphs (auto) 1.16, Total Counted Not Reportable, Differential Comment SCANNED, Diff Path Review November [facility] 09/10/17 05:45: Sodium 133 L, Potassium 4.0, Chloride 98, Carbon Dioxide 26.0, Anion Gap 9, BUN 10, Creatinine 0.70, Estim Creat Clear Calc 60.26, Est GFR ( MDRD) Af Amer 142, Est GFR (MDRD) Non-Af 118, BUN/Creatinine Ratio 14.3, Glucose 287 H, Calcium 8.7 09/10/17 06:43: POC Glucose 354 H 09/10/17 11:44: POC Glucose 275 H 09/10/17 16:36: POC Glucose 241 H Current Medications Alendronate Sodium (Fosamax) 70 mg PO Q7D@0700 [facility] Atorvastatin Calcium (Lipitor) 40 mg PO QHS [facility] Last Admin: 09/09/17 22:31 Dose: 40 mg Calcium/Vitamin D (Os-Ferny 500mg + D) [facility] Last Admin: 09/10/17 16:40 Dose: 1 tablet Dextrose (D50w Syringe) 0 gm IV X1 PRN; Protocol PRN Reason: Hypoglycemia Docusate Sodium (Colace) 200 mg PO BID [facility] Last Admin: 09/10/17 09:27 Dose: 200 mg Donepezil HCl (Aricept) 10 mg PO DAILY [facility] Last Admin: 09/10/17 09:27 Dose: 10 mg Escitalopram Oxalate (Lexapro) 15 mg PO DAILY [facility] Last Admin: 09/10/17 09:27 Dose: 15 mg Glucagon () 1 mg IM .X1 PRN PRN Reason: Hypoglycemia Heparin Sodium (Porcine) (Heparin Na) 5,000 unit SC Q8 [facility] Last Admin: 09/10/17 15:11 Dose: 5,000 u Hydralazine HCl (Apresoline) 10 mg IV Q6H PRN PRN PRN Reason: BLOOD PRESSURE ELEVATION Last Admin: 09/09/17 23:50 Dose: 10 mg Insulin Aspart (Novolog Flexpen (Bkc)) 0 units SC ACHS [facility] PRN Reason: Protocol Last Admin: 09/10/17 16:39 Dose: 3 u Insulin Detemir (Levemir ([facility])) 10 units SC BID [facility] Levetiracetam (Keppra) 500 mg PO BID [facility] Last Admin: 09/10/17 09:27 Dose: 500 mg Losartan Potassium (Cozaar) 50 mg PO DAILY [facility] Last Admin: 09/10/17 09:37 Dose: 50 mg Magnesium Hydroxide (Milk Of Magnesia) 30 ml PO DAILY PRN PRN PRN Reason: Constipation Metformin [facility] (Glucophage) [facility] Last Admin: 09/10/17 16:40 Dose: 500 mg Phenobarbital (Phenobarbital) 129.6 mg PO BID [facility] Pioglitazone HCl (Actos) 15 mg PO DINNER [facility] Last Admin: 09/10/17 16:40 Dose: 15 mg Sodium Chloride () 5 - 30 ml IV UD PRN PRN Reason: SALINE FLUSH Assessment/Plan Active and Suspected Problems Elevated blood sugar (Acute) Weakness (Acute) Weakness (Acute) 1. Near syncope ; continue gentle hydration will obtain echocardiogram. 2. hypertension; continue current antihypertensive agents. 3. Diabetes type 2 with hyperglycemia; will continue on current oral agents as well as insulin sliding scale, I have started him on Levemir. 4. Osteoporosis; continue on Fosamax. 5. History of seizures; continue his current AEDS without change. 6. DVT prophylaxis with Heparin Code Visit OBSV E&M: 46363 Subsequent observation care L3
[2017-09-10] MEDS: Atorvastatin Calcium 40 MG Tablet PO (22:48)
[2017-09-10] MEDS: Phenobarbital 32.4 MG Tablet 129.6 MG PO (23:03)
[2017-09-11] VITALS (15 sets, daily range): BP systolic 132–190; BP diastolic 52–79; PULSE 80–120; RESP 14–20; TEMP 36.7–37.6; O2SAT 92–96
[2017-09-11] MEDS: 0.9% NaCl Peripheral Flush Adult/Peds IV ×2 (02:48→06:47)
[2017-09-11 03:21] LABS: Bedside Glucose 261 mg/dL (70-110)
--- NOTE | 2017-09-11 06:45 | NURSING ---
spoke with the counseling center to notify them of crisis consult. voicemail left for [facility] rehabilitation case coordinator Sheila Coleman as well.
[2017-09-11] MEDS: Metoprolol Tartrate 5 MG/5 ML Vial IV (06:46)
[2017-09-11 06:56] LABS: Bedside Glucose 264 mg/dL (70-110)
[2017-09-11] MEDS: Escitalopram Oxalate 10 MG Tablet 15 MG PO (08:22)
[2017-09-11] MEDS: levETIRAcetam 500 MG Tablet PO ×2 (08:29→21:56)
[2017-09-11] MEDS: Donepezil HCl 10 MG Tablet PO (08:30)
[2017-09-11] MEDS: Calcium Carb/Vitamin D 1 TABLET Tablet PO ×2 (08:30→16:45)
[2017-09-11] MEDS: Docusate Sodium 100 MG Capsule 200 MG PO ×2 (08:30→21:56)
[2017-09-11] MEDS: Losartan Potassium 50 MG Tablet PO (08:30)
[2017-09-11] MEDS: Phenobarbital 32.4 MG Tablet 129.6 MG PO ×2 (09:31→21:56)
--- NOTE | 2017-09-11 10:47 | CASEMGMT ---
JAYA received a voice mail from Verónica Trevino LPN with [facility] ([phone]). She asked for a return call regarding d/c. JAYA called her and left her a voice mail. Ginny MARCUM MSW
--- NOTE | 2017-09-11 11:18 | CASEMGMT ---
SW called [facility] [employer]. Patient's coordinator of genetic services is Alfonso Thornton ([phone]). He said he is currently working to obtain a guardian for patient. He felt it would be a good idea to have patient go to a fpc short term due to his weakness and his bedroom being on the 2nd floor. He suggested SW talk with patient about going to a SNF. JAYA met with patient, introduced self and role at [facility]. JAYA discussed going to a fpc for rehab with him a couple of ways and he continued to say he will stay here or not now. JAYA is not sure he understood what JAYA was asking. JAYA will talk with [facility] to let them know how he is doing with therapy and if they feel they can manage him. JAYA will see if someone from [facility] or [facility] could assist with talking with patient about SNF if he does need to go somewhere. Ginny MARCUM MSW
[2017-09-11 11:35] LABS: Bedside Glucose 306 mg/dL (70-110)
--- NOTE | 2017-09-11 14:30 | CASEMGMT ---
JAYA received a return call from LEOBARDO Sanches at [facility]. She said that they are working on moving patient to a different fci where he will have everything on the first floor. JAYA read her PT/OT notes and she was not overly concerned. She said they will likely not have a problem taking him back, but they will look at the PT/OT and talk amongst themselves to decide. The fax number to send PT/OT to is [phone]. She will let JAYA know. Ginny MARCUM MSW
[2017-09-11 14:40] LABS: Pathologist Review Reviewed
--- NOTE | 2017-09-11 15:42 | PCM.PN.HOSP ---
Patient Problems: Active and Suspected Problems Elevated blood sugar (Acute) Weakness (Acute) Weakness (Acute) Subjective: CC: Follow-up on elevated blood pressure and hyperglycemia Patient feels much improved today. He reports no chest pain, shortness of breath or syncope. Vitals/I&O's: Vital Signs Temp Pulse Resp BP Pulse Ox 98.6 F 106 H 16 132/52 H 95 09/11/17 14:00 09/11/17 14:00 09/11/17 14:00 09/11/17 14:00 09/11/17 14:00 Oxygen Delivery Method Room Air Weight: 81.8 kg Body Mass Index (BMI) 29.0 Intake and Output for Last 24 Hours 09/09/17 09/10/17 09/11/17 23:59 23:59 23:59 Intake Total 565 / 565 2189 / 2189 750 / 750 Output Total 580 / 580 4475 / 4475 1550 / 1550 Balance -15 / -15 -2286 / -2286 -800 / -800 General: Alert, Oriented x3 Oral: Moist Mucosa Neck: Supple, No JVD Lungs: Clear to auscultation, No wheeze Cardiovascular: Normal S1, Normal S2 Abdomen: Bowel Sounds Present, Soft Extremities: No edema Laboratory Results 09/10/17 05:45: Diff Path Review Reviewed 09/10/17 16:36: POC Glucose 241 H 09/10/17 22:46: POC Glucose 261 H 09/11/17 06:37: POC Glucose 264 H 09/11/17 11:17: POC Glucose 306 H Current Medications Alendronate Sodium (Fosamax) 70 mg PO Q7D@0700 [facility] Atorvastatin Calcium (Lipitor) 40 mg PO QHS [facility] Last Admin: 09/10/17 22:48 Dose: 40 mg Calcium/Vitamin D (Os-Ferny 500mg + D) [facility] Last Admin: 09/11/17 08:30 Dose: 1 tablet Dextrose (D50w Syringe) 0 gm IV X1 PRN; Protocol PRN Reason: Hypoglycemia Docusate Sodium (Colace) 200 mg PO BID [facility] Last Admin: 09/11/17 08:30 Dose: 200 mg Donepezil HCl (Aricept) 10 mg PO DAILY [facility] Last Admin: 09/11/17 08:30 Dose: 10 mg Escitalopram Oxalate (Lexapro) 15 mg PO DAILY [facility] Last Admin: 09/11/17 08:22 Dose: 15 mg Glucagon () 1 mg IM .X1 PRN PRN Reason: Hypoglycemia Heparin Sodium (Porcine) (Heparin Na) 5,000 unit SC Q8 [facility] Last Admin: 09/11/17 13:33 Dose: 5,000 u Hydralazine HCl (Apresoline) 10 mg IV Q6H PRN PRN PRN Reason: BLOOD PRESSURE ELEVATION Last Admin: 09/11/17 02:48 Dose: 10 mg Insulin Aspart (Novolog Flexpen ([facility])) 0 units SC ACHS [facility] PRN Reason: Protocol Last Admin: 09/11/17 11:20 Dose: 4 u Insulin Detemir (Levemir ([facility])) 10 units SC BID [facility] Last Admin: 09/11/17 08:31 Dose: 10 u Levetiracetam (Keppra) 500 mg PO BID [facility] Last Admin: 09/11/17 08:29 Dose: 500 mg Losartan Potassium (Cozaar) 100 mg PO DAILY [facility] Magnesium Hydroxide (Milk Of Magnesia) 30 ml PO DAILY PRN PRN PRN Reason: Constipation Metformin HCl (Glucophage) 500 mg PO BIDCM [facility] Last Admin: 09/11/17 08:30 Dose: 500 mg Metoprolol Tartrate (Lopressor (Beta Brittany)) 50 mg PO BID [facility] Phenobarbital (Phenobarbital) 129.6 mg PO BID [facility] Last Admin: 09/11/17 09:31 Dose: 129.6 mg Pioglitazone HCl (Actos) 15 mg PO DINNER [facility] Last Admin: 09/10/17 16:40 Dose: 15 mg Sodium Chloride () 5 - 30 ml IV UD PRN PRN Reason: SALINE FLUSH Last Admin: 09/11/17 06:47 Dose: 10 ml Assessment/Plan Active and Suspected Problems Elevated blood sugar (Acute) Weakness (Acute) Weakness (Acute) 1. Near syncope ; will obtain echocardiogram in a.m. 2. hypertension; his losartan 100 mg daily and metoprolol 50 twice daily 3. Diabetes type 2 with hyperglycemia; continue Levemir and his oral agents as well as regular insulin sliding scale. 4. Osteoporosis; continue on Fosamax. 5. History of seizures; continue his current AEDS without change. 6. DVT prophylaxis with Heparin 7. Deconditioning; PT/OT.
[2017-09-11] MEDS: Pioglitazone Hydrochloride 15 MG Tablet PO (16:45)
[2017-09-11 17:16] LABS: Bedside Glucose 331 mg/dL (70-110)
--- NOTE | 2017-09-11 18:15 | NURSING ---
1630- this RN assuming care of pt at this time
[2017-09-11] MEDS: Atorvastatin Calcium 40 MG Tablet PO (21:56)
[2017-09-11] MEDS: Metoprolol Tartrate 50 MG Tablet PO (22:03)
[2017-09-11 22:45] LABS: Bedside Glucose 269 mg/dL (70-110)
[2017-09-12] VITALS (11 sets, daily range): BP systolic 145–169; BP diastolic 61–80; PULSE 72–101; RESP 16–18; TEMP 36.7–36.9; O2SAT 93–96
[2017-09-12 07:06] LABS: Bedside Glucose 245 mg/dL (70-110)
[2017-09-12] MEDS: Calcium Carb/Vitamin D 1 TABLET Tablet PO ×2 (08:01→16:28)
[2017-09-12] MEDS: levETIRAcetam 500 MG Tablet PO ×2 (10:04→22:14)
[2017-09-12] MEDS: Escitalopram Oxalate 10 MG Tablet 15 MG PO (10:04)
[2017-09-12] MEDS: Metoprolol Tartrate 50 MG Tablet PO ×2 (10:04→22:13)
[2017-09-12] MEDS: Donepezil HCl 10 MG Tablet PO (10:04)
[2017-09-12] MEDS: Losartan Potassium 100 MG Tablet PO (10:05)
[2017-09-12] MEDS: Phenobarbital 32.4 MG Tablet 129.6 MG PO ×2 (10:13→22:13)
[2017-09-12] MEDS: Docusate Sodium 100 MG Capsule 200 MG PO ×2 (10:13→22:13)
[2017-09-12 12:26] LABS: Bedside Glucose 275 mg/dL (70-110)
--- NOTE | 2017-09-12 13:03 | CASEMGMT ---
JAYA sent therapy notes to Verónica at [facility]. JAYA called her to see if they still feel they can manage patient's care. She said they did look at therapy notes and they do feel they can manage his care. She said they are going to transfer him to a different custodial where everything is on 1 level. She asked if he was still an assist of 2 and SW told her he is. She said that is fine. She also asked if he was going to be d/c on insulin. JAYA told her SW will have to find out and let her know. JAYA also asked about transport when he is ready. She said they will come and pick him up. Ginny MARCUM MSW
--- NOTE | 2017-09-12 13:33 | CASEMGMT ---
JAYA received another call from Verónica at [facility]. She said after talking with her mineral wool insulation supervisor they decided it would be best for patient to go to a nursing facility short term for rehab. She asked SW to let her know where he ends up going. SW attempted to wake patient regarding fpc, however he was sleeping and would not wake to the call of his name. When JAYA spoke with him yesterday he did not seem to understand what JAYA was saying. JAYA called [facility] and made a referral. Await their response. Ginny MARCUM MSW
--- NOTE | 2017-09-12 15:22 | CASEMGMT ---
SW went to talk with patient about snf. He was sleeping, but he did wake up when SW said his name. SW told him the nursing home staff feel like he is not strong enough to go back to the nursing home. They as well as the hospital feel it would be best if he goes to a [facility] facility for short term rehab. He told SW he is fine and then closed his eyes and turned his head. SW to follow. J[facility] and [facility] patient. JAYA let physician know. Plan: [facility] . Ginny MARCUM CHIEF SECURITY OFFICER
[2017-09-12] MEDS: Pioglitazone Hydrochloride 15 MG Tablet PO (16:28)
[2017-09-12 16:36] LABS: Bedside Glucose 178 mg/dL (70-110)
--- NOTE | 2017-09-12 16:44 | PCM.PN.HOSP ---
Patient Problems: Active and Suspected Problems Elevated blood sugar (Acute) Weakness (Acute) Weakness (Acute) Subjective: C: Follow-up on elevated blood pressure and hyperglycemia Patient feels much improved today. He reports no chest pain, shortness of breath or syncope. No Acute events reported overnight. Vitals/I&O's: Vital Signs Temp Pulse Resp BP Pulse Ox 98.1 F 84 16 145/61 H 95 09/12/17 03:24 09/12/17 11:24 09/12/17 03:24 09/12/17 10:04 09/12/17 03:24 Oxygen Delivery Method Room Air Weight: 81.8 kg Body Mass Index (BMI) 29.0 Intake and Output for Last 24 Hours 09/10/17 09/11/17 09/12/17 23:59 23:59 23:59 Intake Total 2189 / 2189 1110 / 1110 1000 / 1000 Output Total 4475 / 4475 1650 / 1650 Balance -2286 / -2286 -540 / -540 1000 / 1000 General: Alert, Oriented x3 HEENT: Atraumatic Oral: Moist Mucosa Neck: Supple, No JVD Lungs: Clear to auscultation, No rales Cardiovascular: Regular rate, Normal S1, Normal S2 Abdomen: Bowel Sounds Present, Soft Extremities: No clubbing Musculoskeletal: No Tenderness to Palpation of Joints or Extremities Neurological: Cranial nerves II-XII grossly intact Psych/Mental Status: Normal Affect Microbiology Past 72 Hours 09/09/17 19:15 Blood Culture (Wb) - Anticubital Left Blood Culture - Preliminary No growth in 48 hours. 09/09/17 18:57 Blood Culture (Wb) - Anticubital Left Blood Culture - Preliminary No growth in 48 hours. Laboratory Results 09/11/17 16:43: POC Glucose 331 H 09/11/17 22:02: POC Glucose 269 H 09/12/17 06:46: POC Glucose 245 H 09/12/17 12:08: POC Glucose 275 H 09/12/17 16:22: POC Glucose 178 H Current Medications Acetaminophen (Tylenol) 650 mg PO Q4H PRN PRN PRN Reason: PAIN Alendronate Sodium (Fosamax) 70 mg PO Q7D@0700 [facility] Atorvastatin Calcium (Lipitor) 40 mg PO QHS [facility] Last Admin: 09/11/17 21:56 Dose: 40 mg Calcium/Vitamin D (Os-Ferny 500mg + D) [facility] Last Admin: 09/12/17 16:28 Dose: 1 tablet Dextrose (D50w Syringe) 0 gm IV X1 PRN; Protocol PRN Reason: Hypoglycemia Docusate Sodium (Colace) 200 mg PO BID [facility] Last Admin: 09/12/17 10:13 Dose: 200 mg Donepezil HCl (Aricept) 10 mg PO DAILY [facility] Last Admin: 09/12/17 10:04 Dose: 10 mg Escitalopram Oxalate (Lexapro) 15 mg PO DAILY [facility] Last Admin: 09/12/17 10:04 Dose: 15 mg Glucagon () 1 mg IM .X1 PRN PRN Reason: Hypoglycemia Heparin Sodium (Porcine) (Heparin Na) 5,000 unit SC Q8 [facility] Last Admin: 09/12/17 16:28 Dose: 5,000 u Hydralazine HCl (Apresoline) 10 mg IV Q6H PRN PRN PRN Reason: BLOOD PRESSURE ELEVATION Last Admin: 09/11/17 02:48 Dose: 10 mg Insulin Aspart (Novolog Flexpen ([facility])) 0 units SC ACHS [facility] PRN Reason: Protocol Last Admin: 09/12/17 16:27 Dose: 1 u Insulin Detemir (Levemir ([facility])) 10 units SC BID [facility] Last Admin: 09/12/17 10:05 Dose: 10 u Levetiracetam (Keppra) 500 mg PO BID [facility] Last Admin: 09/12/17 10:04 Dose: 500 mg Losartan Potassium (Cozaar) 100 mg PO DAILY [facility] Last Admin: 09/12/17 10:05 Dose: 100 mg Magnesium Hydroxide (Milk Of Magnesia) 30 ml PO DAILY PRN PRN PRN Reason: Constipation [facility]) [facility] Last Admin: 09/12/17 16:28 Dose: 500 mg Metoprolol Tartrate (Lopressor (Beta Brittany)) 50 mg PO BID [facility] Last Admin: 09/12/17 10:04 Dose: 50 mg Phenobarbital (Phenobarbital) 129.6 mg PO BID [facility] Last Admin: 09/12/17 10:13 Dose: 129.6 mg Pioglitazone HCl (Actos) 15 mg PO DINNER [facility] Last Admin: 09/12/17 16:28 Dose: 15 mg Sodium Chloride () 5 - 30 ml IV UD PRN PRN Reason: SALINE FLUSH Last Admin: 09/11/17 06:47 Dose: 10 ml Assessment/Plan Active and Suspected Problems Elevated blood sugar (Acute) Weakness (Acute) Weakness (Acute) 1. Near syncope ; his echocardiogram is satisfactory with normal EF and no significant valvular abnormality. 2. Hypertension; this is controlled. 3. Diabetes type 2 with hyperglycemia; continue Levemir and his oral agents as well as regular insulin sliding scale. 4. Osteoporosis; continue on Fosamax. 5. History of seizures; continue his current AEDS without change. 6. DVT prophylaxis with Heparin 7. Deconditioning; PT/OT, discharge planning to ECF soon. Code Visit OBSV E&M: 69779 Subsequent observation care L3
[2017-09-12] MEDS: Atorvastatin Calcium 40 MG Tablet PO (22:14)
[2017-09-12 22:36] LABS: Bedside Glucose 202 mg/dL (70-110)
[2017-09-13 03:00] VITALS: BP 150/70; PULSE 85; RESP 16; TEMP 37; O2SAT 94
[2017-09-13 04:13] VITALS: PULSE 84
[2017-09-13 06:55] LABS: Bedside Glucose 196 mg/dL (70-110)
[2017-09-13 07:27] VITALS: PULSE 97
[2017-09-13 08:27] VITALS: BP 167/84; PULSE 93; RESP 16; TEMP 36.8; O2SAT 99
[2017-09-13] MEDS: Calcium Carb/Vitamin D 1 TABLET Tablet PO (08:35)
--- NOTE | 2017-09-13 10:17 | CASEMGMT ---
JAYA called Alfonso at [employer]. JAYA asked him if someone that patient is familiar with could come to the hospital to explain to patient where he is going and why. JAYA does not feel he is understanding SW. He said he would check. JAYA then spoke with Verónica from the [facility] and she said that the [employer] security professional who patient is very familiar with will come to the hospital to see patient and will meet him at [facility]. Await d/c orders. Ginny MARCUM MSW
[2017-09-13] MEDS: levETIRAcetam 500 MG Tablet PO (10:18)
[2017-09-13] MEDS: Docusate Sodium 100 MG Capsule 200 MG PO (10:18)
[2017-09-13] MEDS: Donepezil HCl 10 MG Tablet PO (10:18)
[2017-09-13] MEDS: Losartan Potassium 100 MG Tablet PO (10:18)
[2017-09-13 10:19] VITALS: BP 167/84; PULSE 93
[2017-09-13] MEDS: Metoprolol Tartrate 50 MG Tablet PO (10:19)
[2017-09-13] MEDS: hydroCHLOROthiazide 25 MG Tablet PO (10:19)
[2017-09-13] MEDS: Phenobarbital 32.4 MG Tablet 129.6 MG PO (10:19)
[2017-09-13] MEDS: Escitalopram Oxalate 10 MG Tablet 15 MG PO (10:20)
[2017-09-13 11:02] VITALS: PULSE 97
[2017-09-13 11:27] LABS: Bedside Glucose 189 mg/dL (70-110)
--- NOTE | 2017-09-13 11:56 | PCM.TXEXTCAR ---
- Diet 09/09/17 18:26 Diet: Calorie Controlled How many daily calories?: 1800 calorie - Routine Orders/Code Status Code Status: Full Code - Allergies/Procedures Done in Hospital Allergies/Adverse Reactions: Allergies ZARIA Inhibitors Allergy (Verified 09/09/17 14:16) Unknown - Type of Care/Length of Stay Estimated LOS: Convalescent Care Less Than 30 days Type of Care Needed: Skilled Rehab Potential: Good Prognosis: Good - Additional Orders/Day of Discharge H&P will serve as current which was dated: 09/13/17 Day of Discharge: 09/13/17 - Follow Up Care Primary Care Physician: Jasiel Orellana MD [Primary Care Provider] - Within 2 Weeks
--- NOTE | 2017-09-13 12:00 | DS.PCM_ITS ---
Discharge Date and Diagnosis Date of Admission: 09/09/17 Date of Discharge: 09/13/17 - Primary Discharge Diagnosis Active and Suspected Problems Elevated blood sugar (Acute) Weakness (Acute) Weakness (Acute) - Secondary Discharge Diagnosis Chronic Problems Seizure disorder (Chronic) Mental retardation (Chronic) Iron deficiency anemia (Chronic) Dyslipidemia (Chronic) Benign hypertension (Chronic) Hospital Course and Treatment Consultations 09/11/17 06:42 Crisis [Consult: Mental Health/Crisis] Routine Reason for consult?: THE PATIENT MADE A COMMENT TO STAFF REGARDING WANTING TO KILL HIMSELF. HE IS ALERT TO SELF ONLY, MRDD. DR PARKS WANTED TO CONSULT CRISIS FOR AN EVALUATION Date Notified:: 09/11/17 Time notified:: 06:42 Summary of Care Provided: 1. Near syncope ; his echocardiogram is satisfactory with normal EF and no significant valvular abnormality. 2. Hypertension; this is controlled. 3. Diabetes type 2 with hyperglycemia; continue Levemir and his oral agents . 4. Osteoporosis; continue on Fosamax. 5. History of seizures; continue his current AEDS without change. 6. DVT prophylaxis with Heparin 7. Deconditioning; PT/OT, discharged to to F This is a 71 year old M with past medical history of hypertension, diabetes, MRDD and dementia. He sent to the emergency room due to lethargy and generalized weakness for several days. In the ED his Blood pressure was noted to be up to 190 systolic. His blood sugar was also noted to be high > 300. CT of his head done was did not show any acute intracranial pathology. Patient was admitted to the hospital for blood pressure CONTROL. She underwent echocardiogram that showed normal ejection fraction and did not show any significant valvular abnormality. He continued to improve, he underwent physical and occ therapy and was recommended [facility]. physical exam at the time of discharge; vital signs were stable. He was alert and oriented to time place and person. He did not appear to be any form of distress. S1 and S2 heard no murmur or gallop Lung exam was clear to auscultation with no adventitious sounds. Abdomen was soft nontender with normal bowel sounds. extremity exam did not reveal any edema, palpable pulses bilaterally. Neurologic exam was grossly intact. Discharge Diet: No Restrictions Home Medications: Medications to take at Discharge Atorvastatin Calcium [Lipitor] 40 mg PO QHS 03/24/14 Calcium Carbonate/Vitamin D3 [Calcium 600-Vit D3 400 Tablet] 1 each PO BID 03/24 Diltiazem CD [Cardizem CD] 120 mg PO DAILY 03/24/14 Docusate Sodium [Colace] 200 mg PO BID 03/24/14 Phenobarbital 129.6 mg PO BID 03/24/14 Alendronate Sodium [Fosamax] 70 mg PO Q7D@0700 05/08/15 Escitalopram Oxalate [Lexapro] 15 mg PO DAILY 11/03/15 Donepezil HCl 10 mg PO DAILY 09/09/17 Levetiracetam [Keppra] 500 mg PO BID 09/09/17 Hydrochlorothiazide [Hctz] 25 mg PO DAILY tablet 09/13/17 Insulin Detemir [Levemir FlexPen] 20 units SC QHS insuln.pen 09/13/17 Losartan Potassium [Cozaar] 100 mg PO DAILY tablet 09/13/17 Metformin HCl [Glucophage] 1,000 mg PO BIDCM #0 09/13/17 Primary Care Physician: Jasiel Orellana MD [Primary Care Provider] - Within 2 Weeks Disposition: Care Home facility Patient Condition:: Fair Meaningful Use Info Meaningful Use Diagnoses (Choose all that apply): None applicable Code Visit Inpatient E&M: 24029 Disch Hosp
--- NOTE | 2017-09-13 12:40 | CASEMGMT ---
Faxed orders to [facility]. Completed convalescent on HENS. JAYA called [facility] and arranged for patient to get picked up at [address] via cot. JAYA spoke with Verónica at the [facility] and she said they will be here in about 15 minutes. JAYA called [facility] and left Hallee a voice mail letting her know patient will be picked up at 130. JAYA also notified RN and elementary secretary. JAYA spoke with patient and let him know about pickle pumper. JAYA let him know that one of his friends from the [facility] will be in to see him and then will meet him at [facility]. He seemed to be okay with the plan. He then asked SW if he could have a Coke. JAYA told him will ask his nurse. She said patient can have one so SW gave him one. He thanked JAYA for having him here. Plan: [facility] under skilled level of care on a convalescent stay. [facility] transported patient via cot. Ginny MARCUM SUPERVISOR DENTURE DEPARTMENT
--- NOTE | 2017-09-13 12:52 | CASEMGMT ---
JAYA also called, Alfonso, patient's Roughing Mill Operator at [facility] and let him know Jennifer from the senior living is coming in to see patient and will see him at [facility] also. JAYA told him that he is being picked up at 130. Ginny MARCUM MSW
[2017-09-13 15:58] LABS: KEPPRA (LEVETIRACETAM) 3.8 ug/mL (10.0-40.0)
== END 2017-09-13 13:54 | disposition skilled nursing facility (03) | DRG 305 ==
LOC: ED 17:30 → PCU 17:44
PROVIDERS: Admitting Provider Student in an Organized Health Care Education/Training Program; Emergency Provider Emergency Medicine; Family Provider Internal Medicine; PCP Internal Medicine; Visit Provider Internal Medicine
DX: I10 Essential (primary) hypertension (principal); E11.65 Type 2 diabetes mellitus with hyperglycemia; F03.90 Unspecified dementia, unspecified severity, without behavioral disturbance, psychotic disturbance, mood disturbance, and anxiety; E87.1 Hypo-osmolality and hyponatremia; G40.909 Epilepsy, unspecified, not intractable, without status epilepticus; D50.9 Iron deficiency anemia, unspecified; M81.0 Age-related osteoporosis without current pathological fracture; Z79.83 Long term (current) use of bisphosphonates; R53.1 Weakness; E78.5 Hyperlipidemia, unspecified; F79 Unspecified intellectual disabilities; R55 Syncope and collapse
CPT/HCPCS: 36415; 51702; 70450; 73562; 80048; 80053; 80177; 80184; 81001; 82962; 83036; 84484; 84550; 85025; 87040; 93005; 93306; 97116; 97162; 97166; 97530; 99285; J7030; J7040; P9612; A4216

== ENCOUNTER 2018-01-24 08:49 | Emergency (ER) | payer MEDICARE, MEDICAID, SELFPAY ==
[2018-01-24 08:50] VITALS: BP 162/80; PULSE 77; RESP 17; TEMP 36.6; O2SAT 95; BMI 34.4
--- NOTE | 2018-01-24 09:20 | CT_ITS ---
STUDY: CT BRAIN WITHOUT CONTRAST REASON FOR EXAM: Male, 72 years old. Confusion. RADIATION DOSAGE (If Supplied By Facility): CTDIvol = ( 44.99 ) mGy, DLP = ( 745.49 ) mGycm TECHNIQUE: Transaxial CT imaging of the brain was performed without administration of intravenous contrast material. Individualized dose optimization techniques were used for this CT. COMPARISON: Comparison is made with prior study dated September 09, 2017. FINDINGS: Normal soft tissue structures. Normal calvarium. There is mild cerebral atrophy with widening of the extra-axial spaces and ventricular dilatation. There are areas of decreased attenuation within the white matter tracts of the supratentorial brain, consistent with microvascular disease changes. There are small punctate calcifications of the basal ganglia which are seen in the aging brain as a normal variant. Normal brainstem. There is moderate cerebellar atrophy. There is no intracranial hemorrhage. There are no findings of an acute ischemic infarction. Normal visualized paranasal sinuses. CT/Brain/Head without Contrast IMPRESSION: Chronic involutional changes of the brain. Electronically Signed: Emory Peña MD at 10:26 EDT Tel [phone], Service support ,
--- NOTE | 2018-01-24 09:21 | EKG12_ITS ---
Test Reason : Blood Pressure : / mmHG Vent. Rate : 073 BPM Atrial Rate : 073 BPM P-R Int : 156 ms QRS Dur : 092 ms QT Int : 384 ms P-R-T Axes : -06 043 050 degrees QTc Int : 423 ms Normal sinus rhythm Increased R/S ratio in V1, consider early transition or posterior infarct Abnormal ECG Confirmed by EUGENIO GONZALEZ, JB ([id number]), nurse sane FRANCO KRISHNAMURTHY ([id number]) on 01/28/2018 3:45:27 PM Referred By: OPAL Confirmed By:JB BECKER MD
--- NOTE | 2018-01-24 09:45 | RAD_ITS ---
STUDY: X-RAY CHEST REASON FOR EXAM: Male, 72 years old. Confusion. TECHNIQUE: PA and lateral views of the chest. COMPARISON: Comparison is made with prior study dated November 03, 2015. FINDINGS: Increased markings in the posteromedial segment of the left lower lobe suggestive of atelectasis and/or infiltrate. Mild increased markings at the right lung base. Follow-up is recommended. There is no demonstrated pleural abnormality. Normal size heart. Normal mediastinum and alfredito. Normal visualized pulmonary arteries. There is atherosclerotic calcification of the aortic arch with tortuosity. There is demineralization of the osseous structures. Increased kyphosis. Healed left rib fractures. I suspect a hiatal hernia. RAD/Chest PA and Lateral IMPRESSION: Findings suggestive of a atelectasis and or infiltrate at both lung bases worse on the left side. Electronically Signed: Emory Peña MD at 10:19 EDT Tel [phone], Service support ,
[2018-01-24 09:48] LABS: Absolute Lymphocyte Count 0.99 X10^3/ul (0.83-4.51); Absolute Neutrophil Count 4.7 X10^3/uL (2.0-7.7); Basophil# 0.03 X10^3/uL; Basophil% 0.4 % (0-1); Eosinophil# 0.14 X10^3/uL; Eosinophils% 2.1 % (0-5); Hematocrit 41.1 % (40-54); Hemoglobin 13.4 g/dl (13.0-16.5); Lymphocyte # 0.99 X10^3/ul (4.0); Lymphocyte % 14.8 % (19-41); Mean Corp Hgb Conc 32.6 g/gl (32-36); Mean Platelet Vol. 11.5 fl (6.2-12.0); Monocyte# 0.82 X10^3/uL; Monocyte% 12.3 % (0-10); Neutrophil # 4.66 X10^3/uL (2.7-7.7); Platelet Count 243 K/mm3 (150-450); RBC Distribution Width CV 13.3 % (11.6-14.6); RBC Distribution Width SD 42.9 fl (35.1-43.9); Red Blood Count 4.62 M/mm3 (4.6-6.2); White Blood Count 6.7 K/mm3 (4.4-11.0)
[2018-01-24 09:49] LABS: POSITIVE COUNT NO; POSITIVE DIFFERENTIAL NO; POSITIVE MORPHOLOGY NO
[2018-01-24 10:02] LABS: AST(SGOT) 18 U/L (15-37); Alanine Aminotransfer ALT/SGPT 31 U/L (16-61); Albumin, Serum 3.8 g/dL (3.2-5.0); Alcohol, Blood (Medical)-Serum < 3.0 mg/dL; Alkaline Phosphatase 126 U/L (45-117); Anion Gap 7 (5-15); BUN 12 mg/dL (7-18); BUN/Creat Ratio 14.6 RATIO (10-20); Chloride 103 mmol/L (98-107); Creatinine, Serum 0.82 mg/dL (0.70-1.30); EST Glomerular Filtration Rate 97 mL/min (>60); Est Glom Filt Rate - Afr Amer 118 mL/min (>60); Estimated Creatinine Clearance 82.84 ml/min; Glucose 145 mg/dL (74-106); Potassium 4.3 mmol/L (3.5-5.1); Protein, Total 7.8 g/dL (6.4-8.2); Sodium Level 140 mmol/L (136-145)
[2018-01-24 10:42] LABS: Bacteria 0 SEEN /hpf (None Seen); Mucous, Urine 0 SEEN /hpf (<or=2+); Red Blood Cells-Urine 0 SEEN /hpf (0-5); Squamous Epithelial Cells - UA 0 SEEN /hpf (0-5); White Blood Cells 0 SEEN /hpf (0-5)
[2018-01-24 10:44] LABS: Color, Urine Yellow (Yellow); Glucose, Dipstick Normal (Normal); Ketone-Dipstick Negative (Negative); Leukocyte Esterase-Dipstick Negative /ul (Negative); Nitrite-Dipstick Negative (Negative); Occult Blood-Urine Negative /ul (Negative); Protein-Dipstick Negative (Negative); Urine Bilirubin Dipstick Negative (Negative); Urine Clarity Clear (Clear); Urine Urobilinogen Normal (Normal)
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
[2018-01-24 10:59] LABS: Amphetamine Urine VISTA NEGATIVE (<1000 ng/mL); Barbiturate Urine VISTA POSITIVE (< 200 ng/mL); Benzodiazepine Urine VISTA NEGATIVE (< 200 ng/mL); Cocaine Urine VISTA NEGATIVE (< 300 ng/mL); Ecstacy Urine VISTA NEGATIVE (< 500 ng/mL); Methadone Urine VISTA NEGATIVE (< 300 ng/mL); PCP Urine VISTA NEGATIVE (< 25 ng/mL); THC Urine VISTA NEGATIVE (< 50 ng/mL); Vista UDS pH Range 6
[2018-01-24 14:03] VITALS: BP 182/71; PULSE 69; RESP 14; O2SAT 98
[2018-01-24 16:45] VITALS: PULSE 80; RESP 16; O2SAT 97
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
[2018-01-24 18:07] VITALS: BP 156/104; PULSE 74; RESP 15; O2SAT 97
[2018-01-24 20:36] VITALS: BP 172/86; PULSE 87; RESP 18; O2SAT 93
[2018-01-24 20:36] LABS: Bedside Glucose 187 mg/dL (70-110)
[2018-01-24] MEDS: Donepezil HCl 10 MG Tablet PO ×2 (20:37)
[2018-01-24] MEDS: Atorvastatin Calcium 40 MG Tablet PO ×2 (20:37→20:38)
[2018-01-24] MEDS: Tamsulosin HCl 0.4 MG Capsule PO (20:37)
[2018-01-24] MEDS: Docusate Sodium 100 MG Capsule PO (20:38)
[2018-01-24] MEDS: QUEtiapine 25 MG Tablet PO (20:39)
[2018-01-24] MEDS: Calcium Carb/Vitamin D 1 TABLET Tablet PO (21:27)
[2018-01-24 22:17] VITALS: RESP 18
--- NOTE | 2018-01-24 23:10 | NURSING ---
gave the pt his medications in between 08:30-09:00. the pt stated this is when he typically takes his medications and with a snack when he is at home.
--- NOTE | 2018-01-25 00:25 | NURSING ---
[facility] DOES NOT TRANSPORT PYSCH PATIENTS AT NIGHT [facility] CAN BE HERE AT 7:30AM AT THE [facility]
[2018-01-25 00:46] VITALS: BP 167/88; PULSE 78; RESP 18; O2SAT 96
[2018-01-25 01:13] VITALS: BP 188/77; PULSE 68; RESP 18; O2SAT 96
[2018-01-25 03:14] VITALS: RESP 18
[2018-01-25 06:51] LABS: Bedside Glucose 194 mg/dL (70-110)
[2018-01-25] MEDS: dilTIAZem 60 MG Tablet 120 MG PO (07:03)
[2018-01-25] MEDS: Aspirin 81 MG TAB.CHEW PO (07:03)
[2018-01-25] MEDS: Losartan Potassium 25 MG Tablet PO (07:03)
[2018-01-25] MEDS: levETIRAcetam 750 MG Tablet PO (07:03)
[2018-01-25] MEDS: Escitalopram Oxalate 20 MG Tablet PO (07:03)
[2018-01-25 08:04] VITALS: BP 170/74; PULSE 72; RESP 18; O2SAT 96
== END 2018-01-25 08:20 ==
PROVIDERS: Emergency Provider Emergency Medicine; Family Provider Internal Medicine; PCP Internal Medicine
DX: F03.91 Unspecified dementia, unspecified severity, with behavioral disturbance (principal); F79 Unspecified intellectual disabilities; G40.909 Epilepsy, unspecified, not intractable, without status epilepticus; I10 Essential (primary) hypertension; E78.5 Hyperlipidemia, unspecified; D50.9 Iron deficiency anemia, unspecified; Z79.82 Long term (current) use of aspirin; Z79.4 Long term (current) use of insulin; Z79.899 Other long term (current) drug therapy
CPT/HCPCS: 70450; 71046; 80053; 80307; 80320; 81001; 82962; 84443; 84484; 85025; 93005; 99284; G0480